=== PATIENT | female | born 1975 | race Hispanic/Latino ===

== ENCOUNTER 2019-05-21 07:36 | Outpatient (CLI) | payer BC ==
--- NOTE | 2019-05-21 08:23 | CT ---
CT abdomen and pelvis with IV and oral contrast HISTORY: Abdominal pain. Anemia. Change in bowel function. FINDINGS: The lung bases are clear. Gallbladder is surgically absent. The liver, spleen, kidneys, adr enal glands, and pancreas have a normal CT appearance. No enlarged lymph nodes or free fluid. Scattered diverticula arise from the colon without adjacent inflammation. Appendix is not inflamed. I ncreased density within the anterior aspect of the central spinal canal at the lumbosacral junction is favored to represent artifact rather than a disc herniation. Short parallel metallic bars within the left posterior pelvis adjacent to the rectosigmoid junction a ppears to represent a displaced fallopian tube ligation clip, as a similar appearing clip is present at the base of the right fallopian tube. IMPRESSION: Diverticulosis. No evidence of diverticulitis. Metallic clip within the posterior lower pelvis appears to represent a displaced left fallopian tube ligation clip, no longer associated with the left fallopian tube. This may be a clinically significant finding regarding nonpatency of the left fallopian tube.
[2019-05-21] MEDS ORDERED: Iopamidol-370 76% 500 ML 1 ML ONE (10:32)
== END 2019-05-21 07:37 | disposition home or self-care (01) ==
LOC: BICCT 07:36
PROVIDERS: ATTEND Physician Assistant Medical
DX: R10.32 Left lower quadrant pain (principal); R19.4 Change in bowel habit; R94.5 Abnormal results of liver function studies; D64.9 Anemia, unspecified; K57.90 Diverticulosis of intestine, part unspecified, without perforation or abscess without bleeding
CPT/HCPCS: 74177; Q9967

== ENCOUNTER 2019-10-01 08:06 | Outpatient (CLI) | payer BC, OTHER ==
[2019-10-01 13:45] LABS: Anion Gap 13 mmol/L (10-20); BUN (Urea Nitrogen) 8 mg/dL (7.0-18.7); Calc. Creatinine Clearance 0 mL/min (70-130); Carbon Dioxide 24 mmol/L (22-29); Chloride 104 mmol/L (98-107); Estimated GFR-MDRD 89; Glucose 79 mg/dL (70-105); Potassium 3.6 mmol/L (3.5-5.1); Sodium 137 mmol/L (136-145)
[2019-10-02 16:50] LABS: SARS-CoV-2 MS2 Positive; SARS-CoV-2 N Gene Negative; SARS-CoV-2 S Gene Negative; SARS-CoV-2 orf1ab Negative
== END 2019-10-01 08:07 | disposition home or self-care (01) ==
LOC: LABBT 08:06
PROVIDERS: ATTEND Obstetrics & Gynecology
DX: Z01.818 Encounter for other preprocedural examination (principal); Z11.59 Encounter for screening for other viral diseases
CPT/HCPCS: 80048; 87635; 93005; 93010; U0003

== ENCOUNTER 2019-10-04 09:36 | Day surgery (SDC) | payer BC ==
[2019-10-01 11:42] VITALS: BMI 38.4
[2019-10-01 13:05] LABS: Hemoglobin 9.6 g/dL (12.0-16.0); Mean Corpuscular HGB CONC 30.2 g/dL (32.0-36.0); Mean Corpuscular Hemoglobin 20.1 pg (27.0-31.0); Mean Corpuscular Volume 66.6 fL (78.0-98.0); Mean Platelet Volume 9.1 fL (7.4-10.4); Platelet Count 577 thou/uL (130-400); RBC Distribution Width 16.8 % (11.5-14.5); Red Blood Cell (RBC) Count 4.78 mill/uL (4.20-5.40)
[2019-10-01 13:42] LABS: BHCG - Serum Negative (NEGATIVE); Pregs Control Background? CLEAR/WHITE (CLR/WHITE); Pregs Control Bar Appear? YES (CONTROL BAR)
--- NOTE | 2019-10-04 09:41 | HP ---
HISTORY OF PRESENT ILLNESS: Ms. Troncoso is a 44-year-old female with history of tubal ligation via Filshie clips, who has been having increasingly heavy menstrual cycles. She has tried Lysteda and she did not tolerate this well due to exacerbation of her migraines. She has also had documented anemia due to the heavy menstrual periods. Due to this complaint, she had a transvaginal ultrasound evaluation in my office on July 18, which showed her to have an endometrial polyp-like lesion in the upper fundus of the uterus. Due to this fact, a hysteroscopic D and C with removal of the polyp along with Stacy endometrial ablation has been planned. PAST MEDICAL HISTORY: Hypertension, hypothyroidism and anxiety. PAST SURGICAL HISTORY: Laparoscopic tubal ligation and laparoscopic cholecystectomy. CURRENT MEDICATIONS: 1. Atenolol 25 mg tablet daily. 2. Hydrochlorothiazide 12.5 mg tablet daily. 3. Levothyroxine 50 mcg tablet daily. 4. Venlafaxine 37.5 mg daily. FAMILY HISTORY: Significant for hypertension, hyperlipidemia, and diabetes. OB HISTORY: She had 3 spontaneous vaginal deliveries. ALLERGIES: SHE HAS ALLERGY TO SEPTRA-SULFA DRUGS. PHYSICAL EXAMINATION: VITAL SIGNS: Her height is 5 feet 2 inches, weight 211 pounds, BMI 38.6. Blood pressure 118/90, pulse 67 and regular, and O2 sat on room air 98%. HEENT: Normal. NECK: Supple. No thyromegaly or masses. CHEST: Clear to auscultation. HEART: Regular rate and rhythm. S1 and S2 heart sounds. No murmurs, rubs or gallops. ABDOMEN: Soft, nontender, and nondistended with no palpable masses. PELVIC: Vulva and vagina had no lesions. Cervix had no lesions. Uterus was small and nontender. Adnexa nontender with no masses. She is up-to-date with her Pap smear screening, which showed ASCUS in the past in 2018 with negative HPV. 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 Endometrial thickness was 8 mm. Both right and left ovaries were normal in appearance. There was noted to be a polyp in the upper fundus seen. ASSESSMENT: This is a 44-year-old female with tubal ligation, menorrhagia with most likely endometrial polyp. The patient is a good candidate for a diagnostic hysteroscopy with polyp removal along with Stacy endometrial ablation procedure. Risks and benefits of procedure are discussed in detail. She is set for surgery on 10/04/2019. Job ID: [id number]
[2019-10-04] MEDS ORDERED: Gabapentin 300 MG CAP ONE (10:07)
[2019-10-04] MEDS ORDERED: Famotidine/PF 20 mg/2ml Vial ONE (10:07)
[2019-10-04] MEDS ORDERED: Fentanyl 100 MCG/2 ML VIAL ONE ×3 (11:45→14:10)
[2019-10-04] MEDS ORDERED: EPHEDRINE 25 MG/5 ML SYRINGE ONE (12:59)
[2019-10-04] MEDS ORDERED: PROPOFOL 200 MG/20 ML VIAL ONE (12:59)
[2019-10-04] MEDS ORDERED: Ondansetron PF 4 MG/2 ML Vial ONE (12:59)
[2019-10-04] MEDS ORDERED: Dexamethasone 20 MG/5 ML VIAL ONE (12:59)
[2019-10-04] MEDS ORDERED: Lidocaine 1% PF 5 ML VIAL ONE (12:59)
[2019-10-04] MEDS ORDERED: HYDROcodone/Acetaminophen 5/325 mg Tablet ONE (15:45)
--- NOTE | 2019-10-04 20:24 | OP ---
DATE OF PROCEDURE: 10/04/2019 PREOPERATIVE DIAGNOSES: 1. Menorrhagia. 2. Endometrial polyp versus submucosal fibroid. POSTOPERATIVE DIAGNOSES: 1. Menorrhagia. 2. Endometrial polyp versus submucosal fibroid. PROCEDURES PERFORMED: 1. Hysteroscopic resection of endometrial lesion with dilatation and curettage. 2. Stacy endometrial ablation procedure. ANESTHESIA: General with LMA. ESTIMATED BLOOD LOSS: Less than 10 mL. COMPLICATIONS: None. COUNTS: Correct x2. ANTIBIOTICS: 2 g Ancef on-call to OR. PATHOLOGY: Endometrial curettings and endometrial lesion. FINDINGS: 1. Uterine cavity had 1 cm posterior mid-uterine cavity lesion, possible polyp versus submucosal fibroid, status post resection otherwise. Otherwise, endometrial cavity had no obvious lesions seen. 2. Fluid deficit from the procedure was 230 mL of the saline. DISPOSITION: Recovery room, then planned for discharge from Day Stay. DESCRIPTION OF PROCEDURE: The patient previously received informed consent in regard to surgery. She was taken back to the operating room, where she received a general anesthetic agent without complications. She was placed in dorsal lithotomy position with Brigido stirrups, and prepped and draped in a sterile fashion. In and out catheterization of bladder was performed at this time. A side-arm speculum was placed in the vagina. The anterior lip of cervix was grasped with single-tooth tenaculum. The uterus sounded to 9 cm. Cervix was sequentially dilated to allow for size 16 Lauren dilator. The 5 mm diagnostic TruClear system scope was placed in the previously mentioned cavity, findings of the uterine cavity were noted with a fluid distention. The 5 mm incisor was then placed through the operative channel, and under direct visualization, the poly versus possible submucosal fibroid was resected, and this was sent for final pathology. Once this had been completed, the Stacy ablation then was carried out. The length of the Stacy was set at 4.5 cm, inserted into the uterine cavity. As directed, the rays of this device were displayed. Cervical collar was sealed. The cavity integrity test was noted to be intact, and then the ablation procedure was carried out for 120-second treatment protocol. The Stacy device was removed. The hysteroscope was then reinserted into the uterine cavity and a good ablation to all the fundus and upper fundus along with sparing of the endocervical cavity was noted. Tenaculum was removed. Speculum was removed. The patient was awakened from anesthesia, and transferred to recovery room in stable condition. Job ID: [id number]
== END 2019-10-04 16:20 | disposition home or self-care (01) ==
LOC: SDC 09:36
PROVIDERS: ATTEND Obstetrics & Gynecology
PROC: 0U5B8ZZ Destruction of Endometrium, Via Natural or Artificial Opening Endoscopic (ICD-10-PCS; principal; 2019-10-04)
PROC: 0UB98ZZ Excision of Uterus, Via Natural or Artificial Opening Endoscopic (ICD-10-PCS; principal; 2019-10-04)
DX: N84.0 Polyp of corpus uteri (principal); I10 Essential (primary) hypertension; E03.9 Hypothyroidism, unspecified; F41.9 Anxiety disorder, unspecified; E66.9 Obesity, unspecified; Z68.38 Body mass index [BMI] 38.0-38.9, adult; Z79.899 Other long term (current) drug therapy; Z88.2 Allergy status to sulfonamides; Z98.51 Tubal ligation status
CPT/HCPCS: 36415; 84703; 85027; 86850; 86900; 86901; 88305; J0690; J1100; J2001; J2405; J2704; J3010; S0028